=== PATIENT | female | born 1975 | race African-American/Black ===

== ENCOUNTER 2016-07-02 18:17 | Emergency (ER) | payer OTHER ==
[2016-07-02 18:36] VITALS: BP 130/91; TEMP 97.8; BMI 39.4
--- NOTE | 2016-07-02 19:36 | PDOC ---
History of Present Illness - General Chief Complaint: Revisit, Lab Variance Stated Complaint: LOW K PCP SENT/BLOODWORK Time Seen by Provider: 07/02/16 19:34 History Source: Patient Exam Limitations: No Limitations - History of Present Illness Initial Comments: CHIEF COMPLAINT: 41 y/o afebrile female with PMH HIV, asthma sent in from [facility] for low potassium. HISTORY OF PRESENT ILLNESS: The patient denies all symptoms, including fever, chills, n/v/d, CP, SOB, palpitations, abd pain, back pain, hematuria, dysuria. The patient is complaint with her HIV medications. Vital signs on arrival are notable for pulse of 111. REVIEW OF SYSTEMS: GENERAL/CONSTITUTIONAL: No fever/chills. No weakness. No weight change. HEAD, EYES, EARS, NOSE AND THROAT: No change in vision. No ear pain or discharge. No sore throat. CARDIOVASCULAR: No chest pain or shortness of breath. No palpitations. RESPIRATORY: No cough, wheezing, or hemoptysis. GASTROINTESTINAL: No abd pain, nausea, vomiting, diarrhea. GENITOURINARY: No dysuria, frequency, or change in urination. MUSCULOSKELETAL: No joint or muscle swelling or pain. No neck or back pain. SKIN: No rash or easy bruising. NEUROLOGIC: No headache, vertigo, loss of consciousness, or loss of sensation. PHYSICAL EXAM: GENERAL: The patient is awake, alert, and fully oriented, in no acute distress. She is very well appearing, ambulatory, in NAD or obvious discomfort. HEAD: Normal with no signs of trauma. ENT: Pupils equal, round and reactive to light, extraocular movements intact, sclera anicteric, conjunctiva clear. Neck supple. LUNGS: Clear to auscultation bilaterally. Normal excursion. No respiratory distress or use of accessory muscles. CV: Rapid rate, regular rhythm. S1/S2, no MRG. Cap refill < 2 sec. ABDOMEN: Soft, non-distended, non-tender even to deep palpation, no hepatomegaly or splenomegaly, no masses. EXTREMITIES: Normal range of motion, no edema. NEUROLOGICAL: Normal speech, normal gait. CN II-XII grossly intact. PSYCH: Normal mood, normal affect. SKIN: Warm, dry, normal turgor, no rashes or lesions noted. Past History - Past Medical History Allergies/Adverse Reactions: Allergies Allergy/AdvReac Type Severity Reaction Status Date / Time No Known Allergies Allergy Verified 07/02/16 18:22 Home Medications: Ambulatory Orders Cholecalciferol (Vitamin D3) [Vitamin D] 2,000 unit PO DAILY #30 capsule Ergocalciferol (Vitamin D2) [Vitamin D] 50,000 unit PO WEEKLY #6 capsule Albuterol Sulfate Inhaler - [Ventolin HFA Inhaler -] 2 inh PO Q6H PRN #1 inh Beclomethasone Dipropionate [Qvar] 2 puff IH BID #1 aer.w.adap 07/02/16 Cetirizine HCl [Zyrtec -] 10 mg PO DAILY #30 tablet 07/02/16 Darunavir/Cobicistat [Prezcobix 800 mg-150 mg Tablet] 1 each PO DAILY #30 tablet 07/02/16 Dolutegravir Sodium [Tivicay] 50 mg PO DAILY #30 tablet 07/02/16 Maraviroc [Selzentry] 150 mg PO BID #60 tablet 07/02/16 Multivitamins [Multivit ([facility] Formul[facility])] 1 tab PO DAILY #30 tab 07/02/16 Tiotropium [place] [Spiriva Respimat] 4 gm IH DAILY #1 mist.inhal 07/02/16 Anemia: No Asthma: Yes Cancer: No Cardiac Disorders: No CVA: No COPD: No CHF: No Dementia: No Diabetes: No GI Disorders: No Disorders: No HTN: No Hypercholesterolemia: No HIV: Yes Kidney Stones: No Liver Disease: No Suicide Attempt (Hx): No Seizures: No Thyroid Disease: No - Surgical History Cholecystectomy: Yes (1998) Neurologic Surgery: No Orthopedic Surgery: No - Psycho/Social/Smoking Cessation Hx Anxiety: No Suicidal Ideation: No Smoking History: Current every day smoker Have you smoked in the past 12 months: Yes Number of Cigarettes Smoked Daily: 10 Cigars Per Day: 0 Information on smoking cessation initiated: Yes 'Breaking Loose' booklet given: 07/02/16 Hx Alcohol Use: Yes (EVERYOTHER DAY) Drug/Substance Use Hx: No Substance Use Type: None Hx Substance Use Treatment: Yes *Physical Exam - Vital Signs Last Vital Signs Temp Pulse Resp BP Pulse Ox 97.8 F 111 H 18 130/91 100 07/02/16 18:23 07/02/16 18:23 07/02/16 18:23 07/02/16 18:23 07/02/16 18:23 Heart Score/ECG Review - ECG Intrepretation Comment:: Twelve-lead EKG was performed and reviewed by Dr. Corado. There is normal sinus rhythm with a normal rate. The axis is normal. The intervals are normal. Nonspecific T wave abnormality. Prolonged QT. Impression: Abnormal twelve-lead EKG ED Treatment Course - LABORATORY CBC & Chemistry Diagram: 07/02/16 22:40 Medical Decision Making - Medical Decision Making A/P: 41 y/o female with low potassium. Level was drawn today and resulted at 2.9. Plan is as follows: 1. EKG 2. KCl x 2 3. Recheck CMP After PO and IV Potassium the repeat potassium is 3.6. The patient continues to feel well. Her HR is now normal Will discharge to home. Suggested she eat bananas or potassium rich foods. Instructed her to f/u with her doctor within 1 week and return to the ER with any concerning symptoms. The patient verbalizes understanding of all instructions, has no further questions and is awaiting discharge. *DC/Admit/Observation/Transfer Diagnosis at time of Disposition: Hypokalemia - Discharge Dispostion Disposition: HOME Condition at time of disposition: Improved - Referrals Referrals: Polly Kapadia NP [Primary Care Provider] - - Patient Instructions Printed Discharge Instructions: DI for Hypokalemia Additional Instructions: Discharge Instructions: -Eat foods rich in potassium, such as bananas -Follow up with your doctor within 1 week -Return to the ER with any concerning symptoms
--- NOTE | 2016-07-02 19:58 | PDOC ---
*Physical Exam - Vital Signs Last Vital Signs Temp Pulse Resp BP Pulse Ox 97.8 F 111 H 18 130/91 100 07/02/16 18:23 07/02/16 18:23 07/02/16 18:23 07/02/16 18:23 07/02/16 18:23 ED Treatment Course - LABORATORY CBC & Chemistry Diagram: 07/02/16 22:40 Medical Decision Making - Medical Decision Making 07/02/16 19:57 agree with care from RACHEL Reese *DC/Admit/Observation/Transfer Diagnosis at time of Disposition: Hypokalemia - Discharge Dispostion Disposition: HOME Condition at time of disposition: Improved - Prescriptions Prescriptions: Amoxicillin - [Amoxicillin 500mg Capsule -] 500 mg PO BID #20 capsule - Referrals Referrals: Polly Kapadia NP [Primary Care Provider] - - Patient Instructions Printed Discharge Instructions: DI for Hypokalemia Additional Instructions: Discharge Instructions: -Eat foods rich in potassium, such as bananas -Follow up with your doctor within 1 week -Return to the ER with any concerning symptoms
[2016-07-02] MEDS ORDERED: KCL 10 MEQ IVPB 100 ML IVPB ONE ×2 (20:23→21:20)
[2016-07-02] MEDS: KCL 10 MEQ IVPB 100 ML IVPB SCH ×2 (20:31→21:22)
[2016-07-02] MEDS ORDERED: POTASSIUM CHLORIDE TABS 20 MEQ TABLET.ER (FP) PO ONE ×2 (21:22→21:25)
[2016-07-02 23:20] LABS: ALBUMIN 2.9 g/dl (3.4-5.0); ANION GAP 8 (8-16); BILIRUBIN,TOTAL 0.5 mg/dL (0.2-1.0); CALCIUM 8.2 mg/dL (8.5-10.1); CO2 26 mmol/L (21-32); GLUCOSE,RANDOM 79 mg/dL (74-106); SGOT/AST 31 U/L (15-37); SGPT/ALT 36 U/L (12-78); TOT PROT 6.3 g/dl (6.4-8.2)
[2016-07-02 23:21] LABS: ALK PHOS 81 U/L (45-117)
[2016-07-02 23:35] VITALS: PULSE 89
--- NOTE | 2016-07-03 11:30 | EKG ---
Test Reason : Blood Pressure : / mmHG Vent. Rate : 092 BPM Atrial Rate : 092 BPM P-R Int : 166 ms QRS Dur : 078 ms QT Int : 386 ms P-R-T Axes : 076 063 068 degrees QTc Int : 477 ms NORMAL SINUS RHYTHM NONSPECIFIC T WAVE ABNORMALITY PROLONGED QT ABNORMAL ECG NO PREVIOUS ECGS AVAILABLE Confirmed by VICTOR MANUEL GRIMES MD ([id number]) on 07/03/2016 11:29:47 AM Referred By: Confirmed By:VICTOR MANUEL GRIMES MD
== END 2016-07-02 23:45 | disposition home or self-care (01) ==
LOC: JER 18:17
DX: E87.6 Hypokalemia (principal); J45.909 Unspecified asthma, uncomplicated; Z21 Asymptomatic human immunodeficiency virus [HIV] infection status; F17.210 Nicotine dependence, cigarettes, uncomplicated
CPT/HCPCS: 36415; 80053; 82306; 82607; 84443; 85025; 86359; 86360; 86593; 87070; 87536; 93005; 93010; 99195; 99282-25; 99401-25; G0463-25

== ENCOUNTER → 2018-12-09 | Outpatient (CLI) | payer OTHER | LOC: YHH 15:51 ==